=== PATIENT | female | born 1985 | race Caucasian/White ===

== ENCOUNTER 2018-05-01 08:00 | Outpatient (CLI) | payer BC ==
[2018-05-01 19:48] LABS: HGB - HEMOGLOBIN 13.3 g/dL (12.0-16.0); MEAN CORPUSCULAR HEMOGLOBIN 31.8 pg (27.0-31.0); MEAN CORPUSCULAR VOLUME 96.3 fL (81.0-99.0); MEAN PLATELET VOLUME 8.5 fL (7.9-10.8); PLT - PLATELET COUNT 210 10^3/uL (130-450); RED BLOOD COUNT 4.17 10^6/uL (4.20-5.40); RED CELL DISTRIBUTION WIDTH 14.2 % (12.0-15.0); WHITE BLOOD COUNT 4.2 x10^3/uL (4.8-10.8)
[2018-05-01 19:49] LABS: BASOPHILS % (AUTO) 0.7 %; EOSINOPHILS # (AUTO) 0.1 10^3/uL (0.0-0.7); LYMPHOCYTES # (AUTO) 1.2 10^3/uL (1.5-3.5); LYMPHOCYTES % (AUTO) 28.5 %; MONOCYTES # (AUTO) 0.3 10^3/uL (0.0-1.0); MONOCYTES % (AUTO) 7.8 %; NEUTROPHILS # (AUTO) 2.6 10^3/uL (1.5-6.6)
[2018-05-01 20:22] LABS: ALBUMIN 4.7 g/dL (3.2-5.5); ALBUMIN/GLOBULIN RATIO 1.6 (1.0-2.2); ALKALINE PHOSPHATASE 30 IU/L (42-121); ALT ALANINE AMINOTRANSFERASE 14 IU/L (10-60); AST ASPARTATE AMINOTRANSFERASE 19 IU/L (10-42); BILIRUBIN,TOTAL 1.1 mg/dL (0.2-1.0); BUN - BLOOD UREA NITROGEN 20 mg/dL (6-20); CALCIUM 9.5 mg/dL (8.5-10.3); CARBON DIOXIDE - CO2 29 mmol/L (21-32); CHLORIDE 103 mmol/L (101-111); CREATININE 0.6 mg/dL (0.4-1.0); GFR - MDRD 116 (>89); GLUCOSE 113 mg/dL (70-100); SODIUM 139 mmol/L (135-145); TOTAL PROTEIN 7.7 g/dL (6.7-8.2)
== END 2018-05-01 23:59 | disposition home or self-care (01) ==
LOC: LAB.WCP 08:00
PROVIDERS: ATTEND Physician Assistant
DX: Z00.00 Encounter for general adult medical examination without abnormal findings (principal)
CPT/HCPCS: 36415; 80053; 84443; 85025

== ENCOUNTER 2018-05-27 08:00 | Outpatient (CLI) | payer BC ==
[2018-05-27 12:32] LABS: BASOPHILS % (AUTO) 0.3 %; HGB - HEMOGLOBIN 13.2 g/dL (12.0-16.0); LYMPHOCYTES # (AUTO) 0.8 10^3/uL (1.5-3.5); LYMPHOCYTES % (AUTO) 21.9 %; MEAN CORPUSCULAR HEMOGLOBIN 31.5 pg (27.0-31.0); MEAN CORPUSCULAR HGB CONC 33.5 g/dL (32.0-36.0); MEAN CORPUSCULAR VOLUME 93.9 fL (81.0-99.0); MEAN PLATELET VOLUME 8.5 fL (7.9-10.8); MONOCYTES # (AUTO) 0.4 10^3/uL (0.0-1.0); MONOCYTES % (AUTO) 10.5 %; NEUTROPHILS # (AUTO) 2.5 10^3/uL (1.5-6.6); NEUTROPHILS % (AUTO) 66.3 %; PLT - PLATELET COUNT 170 10^3/uL (130-450); RED BLOOD COUNT 4.18 10^6/uL (4.20-5.40); WHITE BLOOD COUNT 3.8 x10^3/uL (4.8-10.8)
== END 2018-05-27 23:59 | disposition home or self-care (01) ==
LOC: LAB.WCP 08:00
PROVIDERS: ATTEND Nurse Practitioner
DX: F41.9 Anxiety disorder, unspecified (principal); J18.9 Pneumonia, unspecified organism
CPT/HCPCS: 36415; 84439; 84481; 85025

== ENCOUNTER 2018-05-29 08:00 | Outpatient (CLI) | payer BC | END 2018-05-29 23:59 | disposition home or self-care (01) | LOC: LAB.WCP 08:00 | PROVIDERS: ATTEND Physician Assistant | DX: E05.90 Thyrotoxicosis, unspecified without thyrotoxic crisis or storm (principal) | CPT/HCPCS: 36415; 81599; 83519 ==

== ENCOUNTER 2018-06-02 14:10 | Outpatient (CLI) | payer BC ==
--- NOTE | 2018-06-02 14:40 | XRAY Report ---
Reason: PNEUMONIA Procedure Date: 06/02/2018 Accession Number: [id number] / [id number] Procedure: WCP - Chest 2 View X-Ray CPT Code: 53887 FULL RESULT: EXAM: CHEST RADIOGRAPHY EXAM DATE: 06/02/2018 02:29 PM. CLINICAL HISTORY: Cough. Possible pneumonia. COMPARISON: None. TECHNIQUE: 2 views. FINDINGS: Lungs/Pleura: Bilateral upper lung zone bullous emphysema. Lungs otherwise clear. No suspicious mass or infiltrate. Normal pleural spaces Mediastinum: Heart and mediastinal contours are unremarkable. Other: None. IMPRESSION: 1. COPD. 2. Otherwise negative examination. No acute cardiopulmonary abnormality. RADIA
== END 2018-06-02 14:11 | disposition home or self-care (01) ==
LOC: DI.WCP 14:10
PROVIDERS: ATTEND Physician Assistant
DX: J44.9 Chronic obstructive pulmonary disease, unspecified (principal)
CPT/HCPCS: 71046

== ENCOUNTER 2018-06-16 14:41 | Outpatient (CLI) | payer BC ==
--- NOTE | 2018-06-16 17:15 | CT Report ---
Reason: COPD, SMOKER, PNEUMONIA Procedure Date: 06/16/2018 Accession Number: [id number] / [id number] Procedure: CT - CHEST WO CPT Code: FULL RESULT: EXAM: CT CHEST EXAM DATE: 06/16/2018 03:30 PM. CLINICAL HISTORY: COPD, SMOKER, PNEUMONIA. COMPARISONS: 06/02/2018 chest x-ray. TECHNIQUE: Routine helical CT imaging was performed through the chest. IV contrast: None. Reconstructions: Coronal and sagittal. In accordance with CT protocol optimization, one or more of the following dose reduction techniques were utilized for this exam: automated exposure control, adjustment of mA and/or KV based on patient size, or use of iterative reconstructive technique. FINDINGS: Lungs/Pleura: No nodules, bronchial thickening, consolidation, or edema. Pulmonary vasculature is normal. No pericardial or pleural effusion. No pneumothorax. Mediastinum: Normal. No adenopathy or masses. The heart and great vessels are normal. Bones: Minimal thoracic levoscoliosis. Included upper Abdomen: Unremarkable. Other: None. IMPRESSION: Normal chest CT. RADIA
== END 2018-06-16 14:42 | disposition home or self-care (01) ==
LOC: DI 14:41
PROVIDERS: ATTEND Physician Assistant
DX: J44.9 Chronic obstructive pulmonary disease, unspecified (principal); J18.9 Pneumonia, unspecified organism; F17.200 Nicotine dependence, unspecified, uncomplicated; E04.2 Nontoxic multinodular goiter
CPT/HCPCS: 71250; 76536

== ENCOUNTER 2018-06-16 14:42 | Outpatient (CLI) | payer BC ==
--- NOTE | 2018-06-16 18:52 | Ultrasound Report ---
Reason: HYPERTHYROID Procedure Date: 06/16/2018 Accession Number: [id number] / [id number] Procedure: US - Head or Neck Soft Tissue CPT Code: FULL RESULT: EXAM: THYROID ULTRASOUND EXAM DATE: 06/16/2018 03:40 PM. CLINICAL HISTORY: HYPERTHYROID. COMPARISON: None. TECHNIQUE: Real time sonographic imaging of the thyroid was performed by the truck shop mechanic. Multiple sales representative supervisor static images were saved for review. FINDINGS: THYROID GLAND: Right Lobe: 4.7 x 1.4 x 1.5 cm, volume 5.2 cc. Normal background echotexture. Right Lobe Nodules: Inferior pole 1.2 x 0.8 x 0.9 cm vascular predominantly isoechoic nodule. Left Lobe: 4.3 x 1.5 x 1.6 cm, volume 5.4 cc. Normal background echotexture. Left Lobe Nodules: 1 x 0.7 x 0.7 cm hypoechoic mildly complex vascular nodule. Isthmus: 0.3 cm AP. Isthmic Nodules: None. LYMPH NODES: No adenopathy demonstrated in the central or lateral compartment. OTHER: None. IMPRESSION: Dominant solid-appearing nodule in each lobe of the thyroid as above. Suggest follow-up thyroid ultrasound in 6-12 months. Management recommendations are based on 2015 [place] [employer] Management Guidelines for Adult Patients with Thyroid Nodules and Differentiated Thyroid Cancer. RADIA
== END 2018-06-16 14:43 | disposition home or self-care (01) ==
LOC: DI 14:42
PROVIDERS: ATTEND Physician Assistant
DX: E04.2 Nontoxic multinodular goiter (principal)
CPT/HCPCS: 76536

== ENCOUNTER 2018-07-21 12:15 | Outpatient (CLI) | payer BC ==
[2018-07-21 18:58] LABS: BILIRUBIN,URINE NEGATIVE (NEGATIVE); GLUCOSE, URINE (UA) NEGATIVE (NEGATIVE); KETONES,URINE (UA) NEGATIVE (NEGATIVE); LEUKOCYTE ESTERASE, URINE NEGATIVE (NEGATIVE); NITRITE,URINE NEGATIVE (NEGATIVE); OCCULT BLOOD,URINE NEGATIVE (NEGATIVE); PH,URINE 6.5 PH (5.0-7.5); PROTEIN,URINE NEGATIVE (NEGATIVE); UROBILINOGEN,URINE 0.2 (NORMAL) E.U./dL (NORMAL)
[2018-07-21 19:02] LABS: CLARITY,URINE CLEAR (CLEAR)
[2018-07-21 19:13] LABS: BACTERIA,URINE None Seen /HPF (None Seen); MUCUS,URINE Moderate Strands; RBC,URINE None Seen /HPF (0-5); SQUAMOUS EPITHELIAL CELL,UR FEW Squamous (<= Few)
== END 2018-07-21 12:16 | disposition home or self-care (01) ==
LOC: LAB.WCP 12:15
PROVIDERS: ATTEND Physician Assistant
DX: R35.0 Frequency of micturition (principal)
CPT/HCPCS: 81001

== ENCOUNTER 2019-01-12 09:00 | Outpatient (CLI) | payer BC ==
[2019-01-12 18:46] LABS: BASOPHILS % (AUTO) 0.9 %; EOSINOPHILS % (AUTO) 0.9 %; HGB - HEMOGLOBIN 12.4 g/dL (12.0-16.0); LYMPHOCYTES # (AUTO) 1.4 10^3/uL (1.5-3.5); MEAN CORPUSCULAR HEMOGLOBIN 30.5 pg (27.0-31.0); MEAN CORPUSCULAR HGB CONC 30.7 g/dL (32.0-36.0); MEAN CORPUSCULAR VOLUME 99.3 fL (81.0-99.0); MEAN PLATELET VOLUME 10.4 fL (7.9-10.8); MONOCYTES # (AUTO) 0.4 10^3/uL (0.0-1.0); MONOCYTES % (AUTO) 8.8 %; NEUTROPHILS # (AUTO) 2.6 10^3/uL (1.5-6.6); NEUTROPHILS % (AUTO) 58.2 %; PLT - PLATELET COUNT 210 10^3/uL (130-450); RED BLOOD COUNT 4.07 10^6/uL (4.20-5.40); RED CELL DISTRIBUTION WIDTH 13.5 % (12.0-15.0); WHITE BLOOD COUNT 4.4 x10^3/uL (4.8-10.8)
== END 2019-01-12 23:59 | disposition home or self-care (01) ==
LOC: LAB.WCP 09:00
PROVIDERS: ATTEND Physician Assistant
DX: E05.90 Thyrotoxicosis, unspecified without thyrotoxic crisis or storm (principal); Z79.899 Other long term (current) drug therapy
CPT/HCPCS: 36415; 84443; 85025

== ENCOUNTER 2019-12-02 15:45 | Outpatient (CLI) | payer BC ==
--- NOTE | 2019-12-02 15:48 | XRAY Report ---
PROCEDURE: Foot 3 View LT INDICATIONS: L TOE PAIN TECHNIQUE: 3 views of the foot were acquired. COMPARISON: Prior studies were not available for review. FINDINGS: Bones: There is an oblique fracture of the left third toe proximal phalanx with early bridging callus formation. Alignment appears anatomic. No evidence for intra-articular extension. Remaining osseous structures appear intact. No suspicious bony lesions. Soft tissues: No tibiotalar joint effusion. Achilles tendon appears normal. IMPRESSION: Healing, nondisplaced oblique fracture of the left third toe proximal phalanx Reviewed by: Keagan Moreno MD on 12/02/2019 3:47 PM PDT Approved by: Keagan Moreno MD on 12/02/2019 3:47 PM PDT Station ID: [id number]
== END 2019-12-02 23:59 | disposition home or self-care (01) ==
LOC: DI.WCP 15:45
PROVIDERS: ATTEND Physician Assistant
DX: S92.515A Nondisplaced fracture of proximal phalanx of left lesser toe(s), initial encounter for closed fracture (principal)

== ENCOUNTER 2020-06-07 19:06 | Emergency (ER) | payer BC ==
[2020-06-07] MEDS ORDERED: KETOROLAC 30 MG/ML VIAL IVP STA (19:48)
[2020-06-07] MEDS ORDERED: SODIUM CHLORIDE 0.9% 1,000 ML IV STA (19:48)
--- NOTE | 2020-06-07 19:50 | ED Physician Documentation ---
History of Present Illness - Stated complaint Stated Complaint: HEWITT - Chief complaint Chief Complaint: Neuro - History obtained from History obtained from: Patient - History of Present Illness Timing: Today Pain level max: 8 Pain level now: 8 - Additonal information Additional information: 34-year-old female with migraine headaches. She states that this headache started today. She states that usually when the headaches are this bad she comes to the emergency department for IV fluids and Toradol. Worse with light and sound. No fevers. No chills. No trauma. Denies any possibility of . The headache is holoacranial, gradual in onset. This is her typical headache. Better with a dark room. Review of Systems Ten Systems: 10 systems reviewed and negative Constitutional: denies: Fever, Chills Eyes: reports: Photophobia Ears: denies: Ear pain Nose: denies: Rhinorrhea / runny nose, Congestion Throat: denies: Sore throat Cardiac: denies: Chest pain / pressure, Palpitations Respiratory: denies: Dyspnea, Cough GI: denies: Abdominal Pain, Nausea, Vomiting, Diarrhea : denies: Dysuria, Frequency, Hesitancy, Now EGA Skin: denies: Rash Musculoskeletal: denies: Neck pain, Back pain Neurologic: reports: Headache. denies: Focal weakness, Numbness PD PAST MEDICAL HISTORY - Past Medical History Past Medical History: Yes Cardiovascular: None Respiratory: None Neuro: Migraines Endocrine/Autoimmune: None GI: None QUALITY ASSURANCE MANAGER: None : None HEENT: None Psych: None Musculoskeletal: None Derm: None Other Past Medical History: INSOMNIA.. - Past Surgical History Past Surgical History: No - Present Medications Home Medications: Ambulatory Orders Medication Instructions Recorded Confirmed traZODone [Desyrel] 50 mg PO DAILY 06/07/20 06/07/20 - Allergies Allergies/Adverse Reactions: Allergies Allergy/AdvReac Type Severity Reaction Status Date / Time amoxicillin Allergy Hives Verified 06/07/20 19:19 - Social History Does the pt smoke?: Yes Smoking Status: Current every day smoker Does the pt drink ETOH?: No Does the pt have substance abuse?: No - Immunizations Immunizations are current?: No - POLST Patient has POLST: No PD ED PE NORMAL - Vitals Vital signs reviewed: Yes - General General: Alert and oriented X 3, No acute distress, Well developed/nourished - HEENT HEENT: PERRL, Moist mucous membranes - Neck Neck: Supple, no meningeal sign - Cardiac Cardiac: RRR, Strong equal pulses - Respiratory Respiratory: No respiratory distress, Clear bilaterally - Abdomen Abdomen: Soft, Non tender, Non distended - Derm Derm: Warm and dry, No rash - Extremities Extremities: No edema, No calf tenderness / cord - Neuro Neuro: Alert and oriented X 3, yeast stacker 2-12 intact, No motor deficit, No sensory deficit, Normal speech Eye Opening: Spontaneous Motor: Obeys Commands Verbal: Oriented GCS Score: 15 - Psych Psych: Normal mood, Normal affect Results - Vitals Vitals: Vital Signs - 24 hr 06/07/20 06/07/20 06/07/20 19:16 19:45 20:13 Temperature 36.4 C L Heart Rate 104 H Respiratory 14 16 16 Rate Blood Pressure 118/74 117/80 O2 Saturation 99 06/07/20 06/07/20 06/07/20 20:28 20:34 20:49 Temperature Heart Rate 85 Respiratory 15 15 16 Rate Blood Pressure 117/80 O2 Saturation 100 Oxygen O2 Source Room air PD MEDICAL DECISION MAKING - ED course Complexity details: re-evaluated patient, considered differential, d/w patient ED course: Patient is a 34-year-old female with her usual migraine headache. Given normal saline and Toradol. Headache resolved. Patient request to go home at this time. No evidence of other emergency medical condition at this time. Patient counseled regarding signs and symptoms for which I believe and urgent re- evaluation would be necessary. Patient with good understanding of and agreement to plan and is comfortable going home at this time This document was made in part using voice recognition software. While efforts are made to proofread this document, sound alike and grammatical errors may occur. Departure - Departure Disposition: 01 Home, Self Care Clinical Impression: Migraine Qualifiers: Migraine type: unspecified Status migrainosus presence: without status migrainosus Intractability: not intractable Qualified Code(s): G43.909 - Migraine, unspecified, not intractable, without status migrainosus Condition: Good Instructions: ED Headache Migraine Follow-Up: your,doctor as needed [Other] Comments: Follow up with your doctor as needed for further care. Return if you worsen. Discharge Date/Time: 06/07/20 20:51
[2020-06-07 20:15] VITALS: BP 117/80
== END 2020-06-07 20:51 | disposition home or self-care (01) ==
LOC: ED 19:06
DX: G43.909 Migraine, unspecified, not intractable, without status migrainosus (principal); F17.200 Nicotine dependence, unspecified, uncomplicated
CPT/HCPCS: 96374; 99284

== ENCOUNTER 2020-08-20 21:34 | Emergency (ER) | payer BC ==
[2020-08-20 21:57] VITALS: BP 106/58
[2020-08-21] MEDS ORDERED: HYDROcod/ACETAM 5/325 MG TABLET PO STA (00:12)
[2020-08-21] MEDS ORDERED: IBUPROFEN 800 MG TABLET PO STA (00:12)
--- NOTE | 2020-08-21 00:15 | ED Physician Documentation ---
PD HPI LOWER EXT INJURY - Stated complaint Stated Complaint: FOOT INJ - Chief complaint Chief Complaint: Ext Problem - History obtained from History obtained from: Patient - Additional information Additional information: Patient comes emergency department chief complaint of left foot injury after falling off horse. Patient states that she was riding her horse when the horse spooked because of fireworks and took off running. Patient fell to the ground but thinks the horse stepped on her foot in the process. She states that as soon as she stood up the pain was so bad that she could not remain standing. Patient denies any other significant injuries. She states incident happened about 2 hours ago. No other complaints at this time. Patient did not hit her head or lose consciousness. Review of Systems Ten Systems: 10 systems reviewed and negative Constitutional: reports: Reviewed and negative Eyes: reports: Reviewed and negative Ears: reports: Reviewed and negative Nose: reports: Reviewed and negative Throat: reports: Reviewed and negative Cardiac: reports: Reviewed and negative Respiratory: reports: Reviewed and negative GI: reports: Reviewed and negative : reports: Reviewed and negative Skin: reports: Reviewed and negative Musculoskeletal: reports: Extremity pain, Extremity swelling, Pain with weight bearing Neurologic: reports: Reviewed and negative Psychiatric: reports: Reviewed and negative Endocrine: reports: Reviewed and negative Immunocompromised: reports: Reviewed and negative PD PAST MEDICAL HISTORY - Past Medical History Cardiovascular: None Respiratory: None Neuro: Migraines Endocrine/Autoimmune: None GI: None FIELD OPERATIONS SUPERVISOR: None : None HEENT: None Psych: None Musculoskeletal: None Derm: None - Past Surgical History Past Surgical History: No - Present Medications Home Medications: Ambulatory Orders Medication Instructions Recorded Confirmed traZODone [Desyrel] 50 mg PO DAILY 06/07/20 06/07/20 HYDROcod/ACETAM 5/325 [Emerson 5/325] 1 - 2 tablet PO Q6H PRN #20 tablet 08/21/20 - Allergies Allergies/Adverse Reactions: Allergies Allergy/AdvReac Type Severity Reaction Status Date / Time amoxicillin Allergy Hives Verified 06/07/20 19:19 - Social History Does the pt smoke?: Yes Smoking Status: Current every day smoker Does the pt drink ETOH?: No Does the pt have substance abuse?: No - Immunizations Immunizations are current?: No - POLST Patient has POLST: No PD ED PE NORMAL - Vitals Vital signs reviewed: Yes - General General: Alert and oriented X 3, No acute distress - HEENT HEENT: Atraumatic, PERRL, EOMI, Moist mucous membranes - Neck Neck: Supple, no meningeal sign - Cardiac Cardiac: Strong equal pulses - Respiratory Respiratory: No respiratory distress - Derm Derm: Normal color, Warm and dry, No rash - Extremities Extremities: No deformity, Other (Edema and tenderness over mid dorsum of left foot. No contusion.) - Neuro Neuro: Alert and oriented X 3, No motor deficit, No sensory deficit - Psych Psych: Normal mood, Normal affect Results - Vitals Vitals: Vital Signs - 24 hr 08/20/20 21:55 Temperature 36.9 C Heart Rate 95 Respiratory 18 Rate Blood Pressure 106/58 L O2 Saturation 99 Oxygen O2 Source Room air - Rads (name of study) L foot Radiology: Prelim report reviewed, EMP read indepedently, See rad report (Fract ures of metatarsal bones 2 through 4, as well as corresponding cuneiforms.) Procedures - Splint (location) L foot Splint applied by: Tech Type of splint: Fiberglass, Short leg, Posterior Other: Patient tolerated well, No complications, Neurovascular intact, Crutches provided PD MEDICAL DECISION MAKING - ED course Complexity details: reviewed results, re-evaluated patient, considered differential, d/w patient ED course: I discussed with the patient that her x-ray shows several midfoot fractures and that it is extremely important that she follows up with podiatry as soon as possible to assess whether further work-up or surgical intervention is indicated. I have also stressed to her the importance of remaining nonweightbearing. Patient has been given a pair of crutches. She has been treated with Vicodin here in the emergency department and is given a prescription for the same. We have discussed home management of symptoms, as well as usual indications for return. Departure - Departure Disposition: 01 Home, Self Care Condition: Stable Instructions: ED Fx Foot Follow-Up: Federico Ayala DPM [Physician No Access] - Katiana Zelaya DPM [Provider Admit Priv/Credential] - Prescriptions: HYDROcod/ACETAM 5/325 [Emerson 5/325] 1 - 2 tablet PO Q6H PRN #20 tablet PRN Reason: Pain Comments: Your x-ray showed breaks of multiple bones in your midfoot. The bone fragments appear to be aligned fairly well, but it is very important that you wear the splint and use the crutches and do not bear weight on the foot until you are followed up by podiatry. It is very important that you see the special shopper as soon as possible, preferably within the week, to determine whether further testing, such as MRI, is warranted. They will also be able to tell you whether or not there will be any need for surgery for your injury. You may take the pain medication as needed. Please also prop your foot up whenever you are sitting down to help with the swelling. Discharge Date/Time: 08/21/20 02:06
[2020-08-21] MEDS ORDERED: HYDROcod/ACET 5/325 Prepack 4 PO STA (01:31)
--- NOTE | 2020-08-21 09:59 | XRAY Report ---
PROCEDURE: Foot 3 View LT INDICATIONS: injury TECHNIQUE: 3 views of the foot were acquired. COMPARISON: None FINDINGS: Bones: There are comminuted, intra-articular fracture seen involving the proximal aspects of the sec ond through fourth metatarsals. No additional fractures can be seen. Soft tissues: No tibiotalar joint effusion. Achilles tendon appears normal. IMPRESSION: Comminuted, intra-articular fractures of the proximal second through fourth metatarsals. If it would be helpful for clinical management decision making, please consider a dedicated foot CT o r MRI for further evaluation (assuming that there is no contraindication). Note: No significant discrepancy from the preliminary report. Reviewed by: Anthony Waterman MD on 08/21/2020 8:47 AM EDUARD Approved by: Anthony Waterman MD on 08/21/2020 8:47 AM EDUARD Station ID: [id number]
== END 2020-08-21 02:06 | disposition home or self-care (01) ==
LOC: ED 21:34
DX: S92.322A Displaced fracture of second metatarsal bone, left foot, initial encounter for closed fracture (principal); S92.332A Displaced fracture of third metatarsal bone, left foot, initial encounter for closed fracture; S92.342A Displaced fracture of fourth metatarsal bone, left foot, initial encounter for closed fracture; V80.010A Animal-rider injured by fall from or being thrown from horse in noncollision accident, initial encounter; Y93.52 Activity, horseback riding; F17.200 Nicotine dependence, unspecified, uncomplicated
CPT/HCPCS: 29515; 73630; 99283; 99284; A9270

== ENCOUNTER 2020-08-22 13:26 | Outpatient (CLI) | payer BC ==
--- NOTE | 2020-08-22 15:35 | XRAY Report ---
PROCEDURE: Foot 3 View LT INDICATIONS: L FOOT PX TECHNIQUE: 3 views of the foot were acquired. COMPARISON: Foot 3 views 08/20/2020 FINDINGS: Bones: No previously unidentified fractures or dislocations. There are nondisplaced fractures at the base of the second third and fourth metatarsal bones. These were previously identified 08/20/20. No lockwood spicious bony lesions. Soft tissues: No tibiotalar joint effusion. Achilles tendon appears normal. IMPRESSION: Nondisplaced fractures at the base of the second third and fourth metatarsal bones previously documen fadi, without supervisor records change 2 days. If a higher degree of anatomic detail regarding the fractures is req uired follow-up CT scanning could be obtained. 6 Reviewed by: Rudy Mackay MD on 08/22/2020 3:34 PM PDT Approved by: Rudy Mackay MD on 08/22/2020 3:34 PM PDT Station ID: [id number]
--- NOTE | 2020-08-22 15:36 | XRAY Report ---
PROCEDURE: Knee 4 View RT INDICATIONS: R KNEE PX TECHNIQUE: 4 views of the right knee(s) were acquired. COMPARISON: None. FINDINGS: Bones: No fractures or dislocations. No suspicious bony lesions. Soft tissues: No joint effusion. No suspicious soft tissue calcifications. IMPRESSION: No trauma to the right knee is found. No effusion or loose body suspected. Reviewed by: Rudy Mackay MD on 08/22/2020 3:35 PM PDT Approved by: Rudy Mackay MD on 08/22/2020 3:35 PM PDT Station ID: [id number]
== END 2020-08-22 13:27 | disposition home or self-care (01) ==
LOC: DI.N 13:26
PROVIDERS: ATTEND Physician Assistant
DX: M25.561 Pain in right knee (principal); S92.325A Nondisplaced fracture of second metatarsal bone, left foot, initial encounter for closed fracture; S92.335A Nondisplaced fracture of third metatarsal bone, left foot, initial encounter for closed fracture; S92.345A Nondisplaced fracture of fourth metatarsal bone, left foot, initial encounter for closed fracture

== ENCOUNTER 2020-10-03 14:15 | Outpatient (CLI) | payer BC ==
--- NOTE | 2020-10-03 16:49 | XRAY Report ---
PROCEDURE: Foot 3 View LT INDICATIONS: NONDISPLACED FX OF L 4TH METATARSAL TECHNIQUE: 3 views of the foot were acquired. COMPARISON: Prior foot series dated 08/22/2020 FINDINGS: Bones: Fracture lucencies are less distinct indicating healing involving the mildly displaced intra-a rticular fracture involving the base of the left second metatarsus.. No suspicious bony lesions. AP view of the right foot demonstrate no significant abnormality. Soft tissues: No tibiotalar joint effusion. Achilles tendon appears normal. IMPRESSION: Slight further healing of the comminuted fracture involving the base of the right second metatarsus. Reviewed by: ALLYSON Mcfarlane on 10/03/2020 4:48 PM PDT Approved by: Harjinder Matos on 10/03/2020 4:48 PM PDT Station ID: [id number]
== END 2020-10-03 23:59 | disposition home or self-care (01) ==
LOC: DI.N 14:15
PROVIDERS: ATTEND Orthopaedic Surgery
DX: S92.322D Displaced fracture of second metatarsal bone, left foot, subsequent encounter for fracture with routine healing (principal)

== ENCOUNTER 2020-11-30 08:00 | Outpatient (CLI) | payer BC ==
--- NOTE | 2020-11-30 12:04 | XRAY Report ---
PROCEDURE: Foot 3 View LT INDICATIONS: FRACTURE OF 4TH METATARSAL BONE LEFT FOOT TECHNIQUE: 3 views of the foot were acquired. COMPARISON: 10/03/2020 plain films FINDINGS: Bones: No change in alignment of proximal left second metatarsal fracture which is less apparent. No suspicious bony lesions. Soft tissues: No tibiotalar joint effusion. Achilles tendon appears normal. IMPRESSION: Healing left second metatarsal fracture. Reviewed by: Serafin De Leon MD on 11/30/2020 12:03 PM PDT Approved by: Serafin De Leon MD on 11/30/2020 12:03 PM PDT Station ID: [id number]
== END 2020-11-30 08:01 | disposition home or self-care (01) ==
LOC: DI.N 08:00
PROVIDERS: ATTEND Orthopaedic Surgery
DX: S92.345A Nondisplaced fracture of fourth metatarsal bone, left foot, initial encounter for closed fracture (principal); S92.335A Nondisplaced fracture of third metatarsal bone, left foot, initial encounter for closed fracture; S92.325D Nondisplaced fracture of second metatarsal bone, left foot, subsequent encounter for fracture with routine healing